=== PATIENT | female | born 1985 | race Caucasian/White ===

== ENCOUNTER 2022-07-21 00:05 | Emergency (ER) | payer BC, OTHER ==
[~2022-07-21] VITALS: Ht 170.2 cm; Wt 67.1 kg
--- NOTE | 2022-07-21 00:31 | NUR ---
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
[2022-07-21] MEDS: LORAZEPAM 1 MG TABLET PO ONE ×2 (01:08→01:14)
[2022-07-21] MEDS ORDERED: LORAZEPAM 1 MG TABLET ONE (01:09)
--- NOTE | 2022-07-21 01:11 | NUR ---
BIBRA 99 FOR PANIC ATTACK. PT A/OX4 TOELRATING R/A WELL WITH NO RESP DISTRESS.
[2022-07-21 01:54] VITALS: BP 124/76
--- NOTE | 2022-07-21 01:56 | NUR ---
Patient discharged to home in stable condition. Written and verbal after care instructions given. Patient verbalizes understanding of instruction.
== END 2022-07-21 01:59 | disposition home or self-care (01) ==
LOC: ER 00:07
DX: F41.9 Anxiety disorder, unspecified (principal)
CPT/HCPCS: 71045-TC